=== PATIENT | female | born 1985 | race Caucasian/White ===

== ENCOUNTER 2023-04-02 15:09 | Emergency (ER) | payer OTHER ==
[~2023-04-02] VITALS: Ht 157.5 cm; Wt 91.4 kg
[~2023-04-02 15:09] MED LIST: FERROUS SULF325 M1 PO; FLUZONE SPLT1 M1 IM; PRENATA3 OR; SPRINTEC 2828 DAY PO; TUBERSOL5 MG/0.1 M ID
[2023-04-02 15:41] LABS: BASO% 0.4 % (0-3); EOS% 0.5 % (0-8); HEMATOCRIT 39.9 % (37.0-47.0); IMMATURE GRANULOCYTES 0.6 % (0.0-5.0); LYMPH% 23.5 % (15-41); MEAN CELL VOLUME 85.1 fL CALC (80.0-100.0); MEAN CORPUSCULAR HGB 27.7 pG CALC (26.0-32.0); MEAN CORPUSCULAR HGB CONC 32.6 g/dL CAL (32.0-36.0); MONO% 9.4 % (2-13); NEUT# 5.07 thou/uL (2.00-7.15); NEUT% 65.6 % (42-76); RED BLOOD COUNT 4.69 mill/uL (4.20-5.60); RED CELL DISTRI WIDTH 12.9 % (11.5-15.5)
[2023-04-02 15:52] LABS: BILIRUBIN, TOTAL 0.4 mg/dL (0.02-1.3); BUN 11 mg/dL (7-17); BUN/CREATININE RATIO 12 (12-20 (CALC)); CARBON DIOXIDE 24 mmol/l (22-30); CHLORIDE 106 mmol/l (95-108); CREATININE 0.9 mg/dL (0.5-1.0); GFR FOR AFR.AMER. > 60 ML/MIN (>=60 (CALC)); GFR OTHER RACES > 60 ML/MIN (>=60 (CALC)); POTASSIUM 3.7 mmol/l (3.5-5.1); SGOT/AST 30 u/l (14-36)
[2023-04-02 15:59] LABS: ALBUMIN 4.6 g/dL (3.2-5.0); ALKALINE PHOSPHATASE 31 u/l (38-126); ANION GAP 16 (6-22 (CALC)); SODIUM 142 mmol/l (137-146); TOTAL PROTEIN 8.1 g/dL (6.3-8.2)
[2023-04-02 16:00] VITALS: BP 117/76
[2023-04-02 16:15] VITALS: BP 130/88
[2023-04-02 18:32] VITALS: BP 130/88
== END 2023-04-02 18:32 | disposition home or self-care (01) | DRG 605 ==
LOC: ED 15:09
PROVIDERS: Family Medicine
DX: S20.214A Contusion of middle front wall of thorax, initial encounter (principal); V49.50XA Passenger injured in collision with unspecified motor vehicles in traffic accident, initial encounter
CPT/HCPCS: Q9967